=== PATIENT | male | born 1940 | race Caucasian/White ===

== ENCOUNTER 2018-03-16 18:42 | Inpatient (IN) ==
[2018-03-16 20:12] LABS: BASO# 0.02 X1000 (0.0-0.2); BASO% 0.4 % (0.0-0.8); EOS# 0.19 X1000 (0.0-0.7); EOS% 3.7 % (0.0-10.0); HEMATOCRIT 46.1 % (42.0-52.0); HEMOGLOBIN 15.6 g/dL (14.0-18.0); IMM GRAN# 0.03 X1000 (0.0-0.04); IMM GRAN% 0.6 % (0.0-0.5); LYMPH# 2.38 X1000 (1.2-3.4); LYMPH% 45.9 % (20.5-51.1); MCH 31.5 PG (27-31); MCHC 33.8 g/dL (33-37); MCV 92.9 FL (81-99); MONO# 0.41 X1000 (0.11-0.59); MONO% 7.9 % (1.7-9.3); MPV 9.8 FL (7.4-10.4); NEUT# 2.16 X1000 (1.4-6.5); NEUT% 41.5 % (42.2-75.2); PLT 187 X1000 (130-400); RBC 4.96 XMIL (4.7-6.1); RDW 12.6 % (11.5-14.5); WBC 5.19 X1000 (4.8-10.8)
[2018-03-16] MEDS: DUONEB (A & A) INH PRN (20:12)
[2018-03-16 20:21] LABS: AGAP 11; BUN 18 mg/dL (8-22); CHLORIDE 99 mmol/L (98-107); CK PROFILE 61 U/L (24-204); COSMO 274; CREATININE 1.1 mg/dL (0.7-1.2); ESTIMATED GFR > 60; GLUCOSE 97 mg/dL (70-104); POTASSIUM 3.7 mmol/L (3.5-5.1); SODIUM 136 mmol/L (136-145); TCO2 26 mmol/L (25-35)
[2018-03-16 20:38] LABS: ALLEN TEST YES; BLOOD TYPE ARTERIAL; HCO3-(ACT) 24.7 mmoll (20.0-26.0); METHB 1.1 % (0.0-1.5); O2HB 90.6 % (95.0-99.0); PCO2(98.6) 43 mmHg (35-45); PO2(98.6) 64 mmHg (60-100); SAMPLE BLOOD; THB 15.7 g/dL (11.5-17.4); pH(98.6) 7.38 (7.35-7.45)
[2018-03-16 20:39] LABS: MODALITY ROOM AIR
[2018-03-16] MEDS: LOVENOX SUBQ SCH (20:42)
[2018-03-16] MEDS: NS 1,000 ML IV SCH (20:42)
[2018-03-16] MEDS: SOLU-MEDROL IV SCH (20:43)
[2018-03-16] MEDS: ZOSYN 3.375 GM in NS 50 ML IV SCH (20:43)
[2018-03-16] MEDS: LEVAQUIN 500 MG/D5W 500 MG/100 ML IVPB IV SCH (20:43)
[2018-03-16] MEDS: ZYRTEC PO SCH (21:22)
[2018-03-16] MEDS: AMBIEN PO SCH (21:22)
[2018-03-16] MEDS: MYSOLINE PO SCH (21:22)
[2018-03-16] MEDS: TOPAMAX PO SCH (21:22)
[2018-03-16] MEDS: NEURONTIN PO SCH (21:22)
--- NOTE | 2018-03-16 22:48 | HISTORY AND PHYSICAL ---
CHIEF COMPLAINT: Shortness of breath, cough, wheezing for the last 2 weeks. HPI: He is a 77-year-old white gentleman was seen in the walk-in clinic last week for bronchitis. The patient was given Levaquin and ProAir. He fails to improve, came in with the above symptoms. The patient slightly hypoxic on pulse oximetry. He had a consolidation signs in the right lower lobe. Chest x-ray showed right lower lobe pneumonia, early infiltrate in the left lung as well. He also has a sniffles rule out flu, as a result admitted directly from my office since failure of outpatient treatment. PAST MEDICAL HISTORY: BPH, diverticulosis, essential tremor, insomnia, acid reflux disease. PAST SURGICAL HISTORY: Right ankle fracture, prostate biopsy 2010, cholecystectomy 2013, spinal fusion L4-L5 anterior approach by Dr. Felix, colonoscopy 2007. MEDICINES: Ambien 10 mg daily, Flomax 0.4 daily, gabapentin 600 t.i.d., primidone 50 p.o. b.i.d., Topamax 25 daily, Zanaflex 4 mg twice daily. ALLERGIES: Not known. SOCIAL HISTORY: 2 children, lives in [place], no smoking, no alcohol. FAMILY HISTORY: Father at the age of 84, mom of hypertension at the age of 81. HEALTH MAINTENANCE: Flu vaccine 11/2017, pneumococcal 10/2012, last physical exam November 2017, colonoscopy 2009. REVIEW OF SYSTEMS: HEENT: No headache. No vision problem. No earache. No sore throat. Sniffles, postnasal drainage. Neck: No neck pain. Cardiopulmonary: Cough, shortness of breath, wheezing, nonproductive cough. No chest pain. GI: No nausea, vomiting, abdominal pain. : No history of dysuria, hesitancy, frequency, dysuria. No swelling of feet. No joint pain. Neurologic: No focal symptoms or weakness. EXAMINATION: He has low-grade fever. Vitals are stable in my office. Not in respiratory distress. HEENT: TMs are normal. Nose and throat congested. Postnasal drainage. Neck: Supple. No lymphadenopathy. Chest: Bilateral rhonchi with rales in the right base. Heart: Sounds are regular. Belly: Soft, nontender. Good bowel sounds. No masses palpable. No peripheral edema, cyanosis. No obvious neurological deficits. INVESTIGATIONS: Pending. Chest x-ray right lower lobe pneumonia. ASSESSMENT AND PLAN: 1. A 77-year-old white gentleman admitted to the hospital with community-acquired right lower lobe pneumonia, failure of outpatient treatment. Basically follow up on the pending labs. Will give oxygen, check the flu test, IV fluids, deep vein thrombosis, gastrointestinal prophylaxis. 2. Reconcile home medicines. In the meantime, continue on low dose of steroids and antibiotics with Levaquin and Zosyn along with bronchodilators. Will follow up on the pending labs. Discussed with the family. cc: Cam Mcelroy MD
[2018-03-17] MEDS: SOLU-MEDROL IV SCH ×3 (03:00→20:35)
[2018-03-17] MEDS: ZOSYN 3.375 GM in NS 50 ML IV SCH ×4 (03:00→21:53)
[2018-03-17] MEDS ORDERED: FLU VACCINE IM ONE (03:13)
[2018-03-17] MEDS ORDERED: PNEUMOVAX 23 IM ONE (03:53)
--- NOTE | 2018-03-17 07:15 | EKG Report ---
Test Performed on : 03/16/2018 8:27:26 PM Test Reason : chest pain Blood Pressure : / mmHG Vent. Rate : 074 BPM Atrial Rate : 074 BPM P-R Int : 188 ms QRS Dur : 080 ms QT Int : 382 ms P-R-T Axes : 054 066 059 degrees QTc Int : 424 ms Normal sinus rhythm. Possible Left atrial enlargement Borderline ECG When compared with ECG of 30-AUG-2013 10:45, No significant change was found Confirmed by Isabel VELASCO, Javon Arreguin ([id number]) on 03/17/2018 5:50:52 PM
--- NOTE | 2018-03-17 07:29 | Diag Imaging Result Doc PS360 ---
EXAM: CHEST-2 VIEWS HISTORY: hypoxia TECHNIQUE: Chest two views COMPARISON: 08/30/2013 FINDINGS: The lungs are hyperexpanded. The heart is not enlarged. The vessels are not distended. There are no infiltrates. No pleural effusions. There is a mild compression fracture to a lower thoracic vertebra. This is unchanged. Apparent right pericardial fat pad which is more prominent than on the prior study. There is apical pleural thickening. IMPRESSION: Emphysema Electronically signed by Sg Bose 03/17/2018 7:26 AM
[2018-03-17] MEDS: MYSOLINE PO SCH ×2 (08:29→20:35)
[2018-03-17] MEDS: TOPAMAX PO SCH ×2 (08:29→20:36)
[2018-03-17] MEDS: NEURONTIN PO SCH ×3 (08:29→20:36)
[2018-03-17] MEDS ORDERED: TYLENOL PO PRN (08:29)
[2018-03-17] MEDS: NS 1,000 ML IV SCH (08:32)
[2018-03-17] MEDS ORDERED: LAMISIL PO SCH (09:00)
[2018-03-17] MEDS ORDERED: FLOMAX PO SCH (09:00)
[2018-03-17] MEDS: DUONEB (A & A) INH PRN ×3 (10:43→23:03)
[2018-03-17] MEDS: LOVENOX SUBQ SCH (20:35)
[2018-03-17] MEDS: LEVAQUIN 500 MG/D5W 500 MG/100 ML IVPB IV SCH (20:35)
[2018-03-17] MEDS: ZYRTEC PO SCH (20:36)
[2018-03-17] MEDS: AMBIEN PO SCH (21:53)
[2018-03-17] MEDS: FLOMAX PO SCH (21:54)
--- NOTE | 2018-03-18 00:07 | PROGRESS NOTE ---
DATE: 03/17/2018 SUBJECTIVE: The patient is a little better. Still coughing and congested. Headache. REVIEW OF SYSTEMS: None reported. OBJECTIVE: Vital Signs: Low-grade fever. Tachycardic. Vitals are stable. HEENT: Within normal limits. Congested. Neck: Supple. Chest: Bilateral rhonchi, with crackles on the right side. Heart: Sounds are regular. Neurologic: No neurological deficits. INVESTIGATIONS: CBC is normal. PO2 64 on room air. SMA-7 is normal. Cardiac enzymes were normal. Flu test was negative. ASSESSMENT AND PLAN: Bronchopneumonia on the right side. Continue on antibiotics with Zosyn and Levaquin. Low dose of steroids. Tylenol for fever. Gentle hydration. Discontinue Lamisil for this onychomycosis. Discussed with the patient, labs are pretty much stable. Followup chest x- ray slightly improving, comparing with x-rays from [facility]. If clinically improves, we will discharge home soon. LEVEL OF DOCUMENTATION: 25 minutes. cc: Cam Mcelroy MD
[2018-03-18] MEDS: ZOSYN 3.375 GM in NS 50 ML IV SCH ×4 (03:48→22:02)
[2018-03-18] MEDS: SOLU-MEDROL IV SCH ×3 (03:48→20:47)
[2018-03-18] MEDS: NS 1,000 ML IV SCH (03:48)
[2018-03-18] MEDS: NEURONTIN PO SCH ×3 (09:47→20:47)
[2018-03-18] MEDS: FLOMAX PO SCH ×2 (09:47→20:47)
[2018-03-18] MEDS: TOPAMAX PO SCH ×2 (09:47→20:47)
[2018-03-18] MEDS: MYSOLINE PO SCH ×2 (09:47→20:47)
[2018-03-18] MEDS: DUONEB (A & A) INH PRN ×2 (09:56→15:36)
[2018-03-18] MEDS: LOVENOX SUBQ SCH (20:46)
[2018-03-18] MEDS: LEVAQUIN 500 MG/D5W 500 MG/100 ML IVPB IV SCH (20:46)
[2018-03-18] MEDS: AMBIEN PO SCH (20:47)
[2018-03-18] MEDS: ZYRTEC PO SCH (20:47)
--- NOTE | 2018-03-19 03:28 | PROGRESS NOTE ---
DATE: 03/18/2018 SUBJECTIVE: The patient is a little better. Decreased cough and wheezing. PHYSICAL EXAMINATION: Vital Signs: Afebrile. Vitals are stable. HEENT Examination: Postnasal drainage. Neck: Supple. Respiratory: Rhonchi on the right side. Heart: Heart sounds are regular. Abdomen: Belly is soft, nontender. Neurologic: No neurological deficits. ASSESSMENT AND PLAN: Right lower lobe pneumonia, improving clinically and radiologically. Continue present treatment. If he continues to improve, we will discharge in the morning and decrease the intravenous fluids, and we will follow up. LEVEL OF DOCUMENTATION: 15 minutes. cc: Cam Mcelroy MD
[2018-03-19] MEDS: ZOSYN 3.375 GM in NS 50 ML IV SCH (04:00)
[2018-03-19] MEDS: SOLU-MEDROL IV SCH (04:00)
[2018-03-19 07:54] VITALS: BP 146/89
[2018-03-19] MEDS: NEURONTIN PO SCH (08:21)
[2018-03-19] MEDS: FLOMAX PO SCH (08:21)
[2018-03-19] MEDS: MYSOLINE PO SCH (08:21)
[2018-03-19] MEDS: TOPAMAX PO SCH (08:21)
[2018-03-19] MEDS ORDERED: PREVNAR 13 IM ONE (08:25)
--- NOTE | 2018-03-21 23:51 | DISCHARGE SUMMARY ---
ADMISSION DATE: 03/16/2018 DISCHARGE DATE: 03/19/2018 DISCHARGING DIAGNOSIS: Right lower lobe bronchopneumonia. SECONDARY DIAGNOSES: 1. Diverticulosis. 2. Essential tremor. 3. Acid reflux disease. 4. Benign prostatic hypertrophy. BRIEF HISTORY: Please see the H and P that was done on 03/16/2018. In brief, he is a 77-year-old white gentleman who was treated initially outpatient with acute upper respiratory infection with bronchitis with Levaquin and decongestants. He failed to improve after 10 days of treatment. He was markedly bronchospastic, wheezing, and rhonchi on the right side. Chest x-ray in my office showed infiltrate in the right lower lobe, pneumonia with atelectasis. Since he failed with outpatient treatment, he was admitted to the hospital for aggressive treatment. HOSPITAL COURSE: He was given bronchodilators, IV steroids, IV antibiotics. Incentive spirometry was given. Followup chest x-ray was improving. Rest of the hospital course was uneventful. He was discharged home in a stable condition. LABORATORIES: CBC: White cell count 5.1, hematocrit 46, platelets 187,000. ABG: pH is 7.38, pCO2 of 43, pO2 of 64 on room air. SMA-7, cardiac enzymes, proBNP were normal. EKG: Normal sinus rhythm, nothing acute. DISCHARGE INSTRUCTIONS: The patient was discharged home in a stable condition with the following instructions. The patient did receive pneumococcal vaccine 13 on 03/19/2018. Discharge medications as follows. 1. Flomax 0.4 p.o. b.i.d. 2. Gabapentin 600 t.i.d. 3. Nexium 20 mg daily. 4. Primidone 50 p.o. b.i.d. 5. Topamax 25 b.i.d. 6. Ambien 10 at bedtime. 7. Cetirizine 10 mg daily. 8. Levaquin 500 daily for 10 days. 9. Medrol Dosepak. FOLLOWUP: In my office in 2 weeks. cc: Cam Mcelroy MD
== END 2018-03-19 11:11 | disposition home or self-care (01) | DRG 195 ==
LOC: 4N 19:35
PROVIDERS: ADMIT Internal Medicine; ATTEND Internal Medicine
CPT/HCPCS: 71020; 71046; 80048; 82550; 82805; 83880; 84484; 85025; 87275; 87276; 87804; 93005; 93010; 94640; 94761; 94799; A9270; J1650; J1956; J2543; J2920; J7030